=== PATIENT | male | born 1990 | race Caucasian/White ===

== ENCOUNTER 2017-06-08 18:14 | Emergency (ER) | payer MEDICAID, OTHER ==
[~2017-06-08] VITALS: Ht 188 cm; Wt 77.0 kg
[2017-06-08 18:33] VITALS: BP 175/93; PULSE 108; RESP 20
[2017-06-08 19:05] VITALS: BP 175/93; PULSE 108; RESP 20; O2SAT 98
[2017-06-08 19:33] VITALS: TEMP 99.4
--- NOTE | 2017-06-08 20:15 | PD ---
HPI Chief Complaint: Psychiatric Symptoms Time Seen by Provider: 20:08 Travel History International Travel<30 days: No Contact w/Intl Traveler<30days: No Traveled to known affect area: No History of Present Illness HPI This is a 27-year-old male who presents under Holguin act initiated by the Police [employer]. According to his paperwork, "Kurt suffers from depression and due to fighting with his , Kurt has made suicidal statements and threatening harm himself." The patient reports that today his told him that she was leaving him and she was taking their child. When the patient objected to the child being taken the called the police and stated the above. The patient denies any thoughts of hurting himself or anyone else and says that his made up the story in order to have the patient removed from the house. He denies any history of depression. He denies any suicidal or homicidal ideation. He denies any drug or alcohol use, auditory visual hallucinations. He has no medical complaints at this time. [facility] Past Medical History Medical History: Denies Significant Hx Diminished Hearing: No Tetanus Vaccination: < 5 Years Influenza Vaccination: No Social History Alcohol Use: Yes (once/month; last use March) Tobacco Use: Yes (1 ppd smoker) Substance Use: Yes (marajuana once/month) Allergies-Medications (Allergen,Severity, Reaction): Coded Allergies: No Known Allergies (Verified Allergy, Unknown, 06/08/17) Reported Meds & Prescriptions Reported Meds & Active Scripts Active No Active Prescriptions or Reported Medications Review of Systems Except as stated in HPI: all other systems reviewed are Neg Physical Exam Narrative GENERAL: Well-developed well-nourished male who is awake and alert and cooperative responding to questions and commands appropriately. SKIN: Warm and dry. HEAD: Atraumatic. Normocephalic. EYES: Pupils equal and round. No scleral icterus. No injection or drainage. ENT: No nasal bleeding or discharge. Mucous membranes pink and moist. NECK: Trachea midline. No JVD. CARDIOVASCULAR: Regular rate and rhythm. No murmur appreciated. RESPIRATORY: No accessory muscle use. Clear to auscultation. Breath sounds equal bilaterally. GASTROINTESTINAL: Abdomen soft, non-tender, nondistended. Hepatic and splenic margins not palpable. MUSCULOSKELETAL: No obvious deformities. No clubbing. No cyanosis. No edema. NEUROLOGICAL: Awake and alert. No obvious cranial nerve deficits. Motor grossly within normal limits. Normal speech. PSYCHIATRIC: Appropriate mood and affect; insight and judgment normal. Data Data Last Documented VS Vital Signs Date Time Temp Pulse Resp B/P (MAP) Pulse Ox O2 Delivery O2 Flow Rate FiO2 06/08/17 19:33 99.4 06/08/17 19:05 108 20 98 Room Air Orders Orders Complete Blood Count With Diff (06/08/17:) Comprehensive Metabolic Panel (06/08/17) Thyroid Stimulating Hormone (06/08/17:) Psych Screen (06/08/17) Drug Screen, Random Urine (06/08/17) Alcohol (Ethanol) (06/08/17:) Tylenol (Acetaminophen) (06/08/17) Salicylates (Aspirin) (06/08/17:) MDM Medical Decision Making Medical Screen Exam Complete: Yes Emergency Medical Condition: Yes Medical Record Reviewed: Yes Differential Diagnosis Adjustment reaction, acute psychosis, major depressive disorder, substance- induced mood disorder Narrative Course 27-year-old male presents under Holguin act for psychiatric evaluation. He is refusing lab work at this time as he does not like needles but he is willing to provide a urine sample whenever he is able to urinate. I see no indication to forcibly take his blood. Mental health screening discussed with the patient. Psychiatric screen ordered. The patient is medically cleared for psychiatric disposition. Diagnosis Primary Impression: Medical clearance for psychiatric admission Scripts No Active Prescriptions or Reported Meds Sawyer Nolan Jun 08, 2017 20:15
[2017-06-08 23:00] VITALS: BP 128/79; PULSE 98; RESP 20
[2017-06-08] MEDS ORDERED: diphenhydrAMINE HCL 50 MG/ML VIAL IM ONE (23:15)
[2017-06-09 06:30] VITALS: BP 131/61; PULSE 70; RESP 16
--- NOTE | 2017-06-09 08:55 | PD ---
Physical Exam Time Seen by Provider: 08:[address] Miller has evaluated the patient, lifted the Holguin act, and cleared the patient for discharge. Data Data Last Documented VS Vital Signs Date Time Temp Pulse Resp B/P (MAP) Pulse Ox O2 Delivery O2 Flow Rate FiO2 06/09/17 06:30 70 16 131/61 (84) Room Air 06/08/17 19:33 99.4 06/08/17 19:05 98 Orders Orders Complete Blood Count With Diff (06/08/17 19:29) Comprehensive Metabolic Panel (06/08/17 19:29) Thyroid Stimulating Hormone (06/08/17 19:29) Psych Screen (06/08/17 19:29) Drug Screen, Random Urine (06/08/17:29) Alcohol (Ethanol) (06/08/17 19:29) Tylenol (Acetaminophen) (06/08/17 19:29) Salicylates (Aspirin) (06/08/17 19:29) Diphenhydramine Inj (Benadryl Inj) (06/08/17 23:15) Diet Regular Basic (06/09/17 Breakfast) Labs Laboratory Tests Test 06/08/17 20:35 Urine Opiates Screen NEG Urine Barbiturates Screen NEG Urine Amphetamines Screen NEG Urine Benzodiazepines Screen NEG Urine Cocaine Screen NEG Urine Cannabinoids Screen POS MDM Supervised Visit with KATRINA: No Narrative Course Dr. Miller has evaluated the patient, lifted the Holguin act, and cleared the patient for discharge. Patient contracts safety. Denies suicidal or homicidal ideations. Patient will be provided community resource packet to [facility] for follow-up. Has friends and family for support. Patient was medically cleared by alternate provider prior to psych screening. Patient has been evaluated by psychiatry and and is now cleared for discharge. Diagnosis Primary Impression: Adjustment disorder with depressed mood Referrals: [facility] (Out patient) [facility] Primary Care Physician Psychiatrist [facility] Patient Instructions: General Instructions, Mood Disorders (ED) Additional Instruction: Contract safety to your self and others Follow-up with psychiatry Follow-up with primary care provider Follow-up with [facility] Return to the emergency department immediately with worsening of symptoms Med/Other Pt SpecificInfo: No Change to Meds, No Meds Exist/No RX given Scripts No Active Prescriptions or Reported Meds Disposition: DISCHARGE HOME Condition: Stable Marcia Valladares Jun 09, 2017 08:55
--- NOTE | 2017-06-09 12:09 | PD.PSY.CON ---
Provisional Diagnosis Admission Date [place] I. Adjustment disorder with depressed mood, cannabis use disorder [place] II. Unspecified personality disorder [place] III. No significant medical history History of Present Illness Service Psychiatry Consult Requested By ER Reason for Consult Suicidal ideation Primary Care Physician No Primary Care Physician HPI The patient was seen this morning at 7:30 AM. The patient a 27-year-old man, domiciled with his in [place] , has 3 kids, employed, college student, without no previous psychiatric history , no previous suicide attempts, cannabis use disorder, no previous psychiatric hospitalizations, he does have history of self cutting behavior in his early adolescence, no significant medical history, who presents under Holguin act initiated by the Police Department. According to his paperwork, "Kurt suffers from depression and due to fighting with his , Kurt has made suicidal statements and threatening harm himself." On psychiatric evaluation today patient reports feeling okay. He denies having history of depression. He reports that he has history of self cutting behavior and conduct disorder as a child and adolescent. He denies depressive symptoms at this moment, denies suicidal ideation, denies homicidal ideation, denies visual and auditory hallucinations. The patient reports that his told him that she was leaving him and she was taking their child. When the patient objected to the child being taken the called the police and stated the above. Patient reports that his did that in order to leave him with his kid "which she already did". Patient has a plan to go back to his house, continue his life, continue his work and his studies. He reports occasional use of marijuana, denies other illegal drugs or alcohol. Review of Systems Constitutional: DENIES: Diaphoretic episodes, Fatigue, Fever, Weight gain, Weight loss, Chills, Dizziness, Change in appetite, Night Sweats Endocrine: DENIES: Heat/cold intolerance, Polydipsia, Polyuria, Polyphagia Eyes: DENIES: Blurred vision, Diplopia, Eye inflammation, Eye pain, Vision loss , Photosensitivity, Double Vision Ears, nose, mouth, throat: DENIES: Tinnitus, Hearing loss, Vertigo, Nasal discharge, Oral lesions, Throat pain, Hoarseness, Ear Pain, Running Nose, Epistaxis, Sinus Pain, Toothache, Odynophagia Respiratory: DENIES: Apneas, Cough, Snoring, Wheezing, Hemoptysis, Sputum production, Shortness of breath Cardiovascular: DENIES: Chest pain, Palpitations, Syncope, Dyspnea on Exertion , PND, Lower Extremity Edema, Orthopnea, Claudication Gastrointestinal: DENIES: Abdominal pain, Black stools, Bloody stools, Constipation, Diarrhea, Nausea, Vomiting, Difficulty Swallowing, Anorexia Genitourinary: DENIES: Sexual dysfunction, Urinary frequency, Urinary incontinence, Urgency, Hematuria, Dysuria, Nocturia, Penile Discharge, Testicular Pain, Testicular Swelling Musculoskeletal: DENIES: Joint pain, Muscle aches, Stiffness, Joint Swelling, Back pain, Neck pain Integumentary: DENIES: Abnormal pigmentation, Nail changes, Pruritus, Rash Hematologic/lymphatic: DENIES: Bruising, Lymphadenopathy Immunologic/allergic: DENIES: Eczema, Urticaria Neurologic: DENIES: Abnormal gait, Headache, Localized weakness, Paresthesias, Seizures, Speech Problems, Tremor, Poor Balance Psychiatric: DENIES: Anxiety, Confusion, Mood changes, Depression, Hallucinations, Agitation, Suicidal Ideation, Homicidal Ideation, Delusions Past Family Social History Coded Allergies: No Known Allergies (Verified Allergy, Unknown, 06/08/17) No Active Prescriptions or Reported Meds Family Psych History No family psychiatric history Social History Patient was born and raised in [place], he has recently moved to [place] about 3 months ago, he lives with his , 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 2) College student, employed Physical Exam Vital Signs Vital Signs Date Time Temp Pulse Resp B/P (MAP) Pulse Ox O2 Delivery O2 Flow Rate FiO2 06/09/17 09:32 06/09/17 06:30 70 16 Room Air 06/08/17 19:33 99.4 06/08/17 19:05 98 Lab Results Test 06/08/17 20:35 Urine Opiates Screen NEG Urine Barbiturates Screen NEG Urine Amphetamines Screen NEG Urine Benzodiazepines Screen NEG Urine Cocaine Screen NEG Urine Cannabinoids Screen POS Mental Status Examination Appearance: Appropriate Consciousness: Alert Orientation: x4 Motor Activity: Normal gait Speech: Unremarkable Language: Adequate Fund of Knowledge: Adequate Attention and Concentration: Adequate Memory: Unremarkable Mood: Appropriate Affect: Appropriate Thought Process & Associations: Intact Thought Content: Appropriate Hallucination Type: None Delusion Type: None Suicidal Ideation: No Suicidal Plan: No Suicidal Intention: No Homicidal Ideation: No Homicidal Plan: No Homicidal Intention: No Insight: Adequate Judgment: Adequate Assessment & Plan Problem List: (1) Adjustment disorder with depressed mood ICD Codes: F43.21 - Adjustment disorder with depressed mood Assessment & Plan: At the moment of the psychiatric evaluation the patient does not present any neuropsychiatric symptoms that require an immediate psychiatric intervention. He denies depressive symptoms, he denies anxiety, he denies luly and psychosis. He denies suicidal or homicidal ideation, he denies visual and auditory hallucinations. Patient denies having previous psychiatric history, but he does report having history of conduct disorder as a child and episodes of self cutting behavior without SI. He does not meet criteria for involuntary psychiatric admission at this moment. Brief supportive psychotherapy, motivational psychoeducation provided. Holguin Act will be lifted Assessment & Plan Estimated LOS: Jomar Scott MD Jun 09, 2017 12:09
== END 2017-06-09 09:35 | disposition home or self-care (01) ==
LOC: NEPJ 18:14
DX: F43.21 Adjustment disorder with depressed mood (principal); F17.210 Nicotine dependence, cigarettes, uncomplicated
CPT/HCPCS: 80307; 96372; 99284; J1200